=== PATIENT | male | born 1945 | race Caucasian/White ===

== ENCOUNTER 2022-11-27 09:00 | Outpatient (CLI) | payer MEDICARE | END 2022-11-27 23:59 | disposition critical access hospital (66) | LOC: EMS 09:00 | DX: R06.03 Acute respiratory distress (principal); F17.210 Nicotine dependence, cigarettes, uncomplicated; F41.9 Anxiety disorder, unspecified | CPT/HCPCS: A0425; A0429 ==

== ENCOUNTER 2022-11-27 09:19 | Emergency (ER) | payer MEDICARE ==
[2022-11-27 09:29] VITALS: BP 167/76
[2022-11-27] MEDS ORDERED: MORPHINE 2 MG/ML CARPUJECT IVP STA (09:41)
[2022-11-27] MEDS ORDERED: IPRATROPIUM/ALBUTEROL 3 ML NEB INH STA (09:41)
[2022-11-27] MEDS ORDERED: SODIUM CHLORIDE 0.9% 1,000 ML IV STA (09:41)
[2022-11-27] MEDS ORDERED: DEXAMETHASONE 10 MG/ML VIAL IVP STA (09:43)
--- NOTE | 2022-11-27 09:43 | ED Physician Documentation ---
PD HPI DYSPNEA - Stated complaint Stated Complaint: SOA - Chief complaint Chief Complaint: Resp - History obtained from History obtained from: Patient, Family (daughter, who gives supplemental info for the patient), EMS (they noted tachycpnea. Sats actually okay 96% RA.) - History of Present Illness Timing - onset: How many weeks ago (2-3 weeks in particular of worse dyspnea and fatigue. Unalbe to get breath this morning with slight activity.) Timing - onset during: Light activity Timing - duration: Weeks Timing - details: Gradual onset, Still present Inciting event(s): No: Immobilization/travel Associated symptoms: Cough, Wheezing. No: Fever, Hemoptysis, Bilateral edema Similar symptoms before: Has not had sx before Recently seen: Not recently seen (he has not been to a medical proiver for about 20 years per daughter.) Review of Systems Constitutional: reports: Myalgias, Fatigue. denies: Fever, Chills Throat: reports: Sore throat, Other (throat pain with difficultly swallowing unless finely chopped for many months.). denies: Dental pain / toothache (he has had extractions of most teeth. Few left for anchoring for dentures.) Cardiac: denies: Chest pain / pressure, Palpitations, Pedal edema, Calf pain Respiratory: reports: Dyspnea, Cough, Wheezing GI: denies: Vomiting (daughter says he will spit back up foods unless they are soft mechanical or chopped up very small.), Constipation, Diarrhea Skin: denies: Rash, Lesions Musculoskeletal: denies: Neck pain, Back pain Endocrine: reports: Weight loss (significant in past 6 months or more.) PD PAST MEDICAL HISTORY - Past Medical History Cardiovascular: None Respiratory: Other (unknown - he suspects COPD. Has not seen provider for perhaps 20 years. ) Neuro: None Endocrine/Autoimmune: None - Present Medications Home Medications: Ambulatory Orders Medication Instructions Recorded Confirmed Ipratropium/Albuterol [Duoneb] 3 ml INH Q6H #240 ml 11/27/22 Nebulizer 1 each MC QID #1 ea 11/27/22 cefUROXime axetiL [Ceftin] 250 mg PO BID #14 tablet 11/27/22 dexAMETHasone [Decadron] 4 mg PO DAILY #10 tablet 11/27/22 - Allergies Allergies/Adverse Reactions: Allergies Allergy/AdvReac Type Severity Reaction Status Date / Time No Known Drug Allergies Allergy Verified 11/27/22 09:28 - Living Situation Living Situation: reports: With spouse/s.o., With family Living Arrangement: reports: At home - Social History Does the pt smoke?: Yes Does the pt drink ETOH?: No Does the pt have substance abuse?: No PD ED PE NORMAL - Vitals Vital signs reviewed: Yes (very tachypneic, but alert and able to talk partial sentences. ) - General General: Alert and oriented X 3. No: Well developed/nourished (frail with low muscle mass. ) - HEENT HEENT: No: Moist mucous membranes, Pharynx benign (no abnormal in direct posterior pharynx. The left side sublingual appears full and lifted. ) - Neck Neck: Supple, no meningeal sign, No adenopathy, Other (no mass/fullness felt anterior neck. ) - Cardiac Cardiac: No: RRR (irregular but rate controlled. No noted murmur (but baseline wheezing obscures sounds some).) - Respiratory Respiratory: No: Clear bilaterally (diffuse wheezing and some coarse sounds right base. ) - Abdomen Abdomen: Normal bowel sounds, Soft, Non tender - Derm Derm: Normal color, Warm and dry - Extremities Extremities: Normal ROM s pain, No edema, No calf tenderness / cord - Neuro Neuro: Alert and oriented X 3, No motor deficit, Normal speech Eye Opening: Spontaneous Motor: Obeys Commands Verbal: Oriented GCS Score: 15 Results - Vitals Vitals: Vital Signs - 24 hr 11/27/22 11/27/22 11/27/22 09:24 10:08 12:45 Temperature 36.4 C L Heart Rate 100 80 82 Respiratory 28 H 25 H 22 Rate Blood Pressure 167/76 H O2 Saturation 100 100 If not protocol 2 : Oxygen Flow, liters/minute Oxygen O2 Source Nasal cannula Oxygen Flow Rate 3 - EKG (time done) 09:40 EKG releavant findings:: EKG personally interpreted by author of this note. Relevant findings are: Rate: Rate (enter#) (90) Rhythm: Atrial fibrillation, Other (movement and tremor artifact, but appears irregular. ) QRS: Normal Ischemia: Normal ST segments. No: ST elevation c/w ischemia, ST depression - Labs Labs: Laboratory Tests 11/27/22 11/27/22 11/27/22 09:50 09:56 09:56 WBC 7.1 RBC 3.93 L Hgb 12.0 L Hct 36.8 L MCV 93.6 MCH 30.5 MCHC 32.6 RDW 12.5 Plt Count 321 MPV 10.3 Neut # (Auto) 5.2 Lymph # (Auto) 1.1 L [place] # (Auto) 0.6 Eos # (Auto) 0.3 Baso # (Auto) 0.0 Absolute Nucleated RBC 0.00 Nucleated RBC % 0.0 Sodium 138 Potassium 4.4 Chloride 100 L Carbon Dioxide 29 Anion Gap 9.0 BUN 11 Creatinine 0.7 Estimated GFR (MDRD) 110 Glucose 111 H Calcium 9.1 Magnesium 1.9 Total Bilirubin 0.5 AST 21 ALT 12 Alkaline Phosphatase 59 Troponin I High Sens B-Natriuretic Peptide Total Protein 7.6 Albumin 3.5 Globulin 4.1 Albumin/Globulin Ratio 0.9 L Lipase 30 TSH Nasal Adenovirus (PCR) NOT DETECTED Nasal B. parapertussis DNA (PCR) NOT DETECTED Nasal Coronavir 229E PCR NOT DETECTED Nasal Coronavir HKU1 PCR NOT DETECTED Nasal Coronavir NL63 PCR NOT DETECTED Nasal Coronavir OC43 PCR NOT DETECTED Nasal Enterovir/Rhinovir PCR NOT DETECTED Nasal Influenza B PCR NOT DETECTED Nasal Influenza A PCR NOT DETECTED Nasal Parainfluen 1 PCR NOT DETECTED Nasal Parainfluen 2 PCR NOT DETECTED Nasal Parainfluen 3 PCR NOT DETECTED Nasal Parainfluen 4 PCR NOT DETECTED Nasal RSV (PCR) NOT DETECTED Nasal B.pertussis DNA PCR NOT DETECTED Nasal C.pneumoniae (PCR) NOT DETECTED Robert Human Metapneumo PCR NOT DETECTED Nasal M.pneumoniae (PCR) NOT DETECTED Nasal SARS-CoV-2 (PCR) NOT DETECTED 11/27/22 11/27/22 11/27/22 09:56 09:56 09:56 WBC RBC Hgb Hct MCV MCH MCHC RDW Plt Count MPV Neut # (Auto) Lymph # (Auto) [place] # (Auto) Eos # (Auto) Baso # (Auto) Absolute Nucleated RBC Nucleated RBC % Sodium Potassium Chloride Carbon Dioxide Anion Gap BUN Creatinine Estimated GFR (MDRD) Glucose Calcium Magnesium Total Bilirubin AST ALT Alkaline Phosphatase Troponin I High Sens 7.3 B-Natriuretic Peptide 52 Total Protein Albumin Globulin Albumin/Globulin Ratio Lipase TSH 1.83 Nasal Adenovirus (PCR) Nasal B. parapertussis DNA (PCR) Nasal Coronavir 229E PCR Nasal Coronavir HKU1 PCR Nasal Coronavir NL63 PCR Nasal Coronavir OC43 PCR Nasal Enterovir/Rhinovir PCR Nasal Influenza B PCR Nasal Influenza A PCR Nasal Parainfluen 1 PCR Nasal Parainfluen 2 PCR Nasal Parainfluen 3 PCR Nasal Parainfluen 4 PCR Nasal RSV (PCR) Nasal B.pertussis DNA PCR Nasal C.pneumoniae (PCR) Robert Human Metapneumo PCR Nasal M.pneumoniae (PCR) Nasal SARS-CoV-2 (PCR) - Rads (name of study) chest xray Relevant Findings:: Prelim report reviewed, EMP independent interpretation of test (right lower atelectasis and infiltrate, small effusion. Likely will get CT to elaborate. ), See rad report CT neck/chest/abd/pelvis Relevant Findings:: Prelim report reviewed, Discussed with rads (large throat mass c/w cancer. Right lower lung infiltrate c/w aspiration per Radiologist. Abd clear. ), EMP independent interpretation of test PD Medical Decision Making - ED course Complexity details: reviewed results, considered differential (Longstanding smoker since age 18 with minimal healthcare contact has had weight loss over the last couple of years and more recently cough and dyspnea progressive for 2 to 3 weeks. No home medications.), d/w patient Reviewed Lab Results: His chest x-ray shows atelectasis and likely infiltrate with a small effusion in the right lower lobe. Otherwise hyperinflation could be consistent with COPD. He has low body muscle mass. EKG shows some baseline artifact but irregularity likely consistent with atrial fibrillation. We can repeat EKG as he is more rested. Some of that was tachypnea. He is given a DuoNeb to try to help on his wheezing and dyspnea. His oxygenation is actually adequate even on room air and 98 to 100% on just 2 L nasal cannula which she had on coming in by EMS. White count at this point is normal. We are still pending electrolytes BNP and troponin. Once we get kidney function back to, we will decide on CT with or without contrast. Social Determinants of Health: Long-term smoker since age 18. Has been up to 2 packs/day for many years. Currently around 1 pack/day. His daughter recently moved to the [place] to be in the house and care for the patient. ED course: the patient's breathing improved quite well with nebulized Combivent. Also given steroids that will help any swellng of bronchioles and also perhaps some around the tumor/edema. I told the patient and [address] findings and need for follow up and presume biopsy to get clearer perspective on likely treatment and benefits. His breathing is much improved and he is saturating at 100% on RA now. Unlabored breathing. I do not have criteria for hospitlization. No need for transfer/admission if seen in near term followup. Departure - Departure Disposition: 01 Home, Self Care Clinical Impression: COPD exacerbation, Mass of mouth or throat Pneumonia Qualifiers: Pneumonia type: due to unspecified organism Laterality: right Lung location: lower lobe of lung Qualified Code(s): J18.9 - Pneumonia, unspecified organism Condition: Stable Record reviewed to determine appropriate education?: Yes Instructions: ED COPD Flare, ED Pneumonia Adult Follow-Up: [facility] [Provider Group] [facility] [Provider Group] [facility] [Provider Group] Prescriptions: cefUROXime axetiL [Ceftin] 250 mg PO BID #14 tablet dexAMETHasone [Decadron] 4 mg PO DAILY #10 tablet Ipratropium/Albuterol [Duoneb] 3 ml INH Q6H #240 ml Nebulizer 1 each MC QID #1 ea Comments: Continue with the soft mechanical diet as you have been doing to make it easier for swallowing foods and fluids. Try to have the foods slightly thickened as it may be easier to swallow. It does sound like you have some underlying COPD previously undiagnosed that is flared up and also you have a pneumonia on the lower right. We can treat this with nebulizers 4 times daily for the next 7 to 10 days. Also add Decadron steroid daily for the next week or so. For the pneumonia, I would also add Ceftin antibiotic twice daily for the next week. You do have a large mass on your CT scan in the throat and neck area. This is what is affecting your swallowing. You will need to have this evaluated and presumably biopsied for a better diagnosis. I gave you the number [facility] and [facility]. Call tomorrow for soon follow-up appointment. They usually pretty good to get a new in fairly promptly. I sent your prescriptions to [facility]. Return to the ER if not improving well over the next few days. Discharge Date/Time: 11/27/22 13:02
[2022-11-27 09:59] LABS: BASOPHILS % (AUTO) 0.4 %; EOSINOPHILS # (AUTO) 0.3 10^3/uL (0.0-0.7); EOSINOPHILS % (AUTO) 3.9 %; HCT - HEMATOCRIT 36.8 % (42.0-52.0); LYMPHOCYTES # (AUTO) 1.1 10^3/uL (1.5-3.5); MEAN CORPUSCULAR HEMOGLOBIN 30.5 pg (27.0-31.0); MEAN CORPUSCULAR HGB CONC 32.6 g/dL (32.0-36.0); MEAN CORPUSCULAR VOLUME 93.6 fL (80.0-94.0); MEAN PLATELET VOLUME 10.3 fL (7.4-11.4); MONOCYTES # (AUTO) 0.6 10^3/uL (0.0-1.0); MONOCYTES % (AUTO) 7.8 %; NEUTROPHILS # (AUTO) 5.2 10^3/uL (1.5-6.6); NEUTROPHILS % (AUTO) 72.6 %; PLT - PLATELET COUNT 321 10^3/uL (130-450); RED BLOOD COUNT 3.93 10^6/uL (4.70-6.10); RED CELL DISTRIBUTION WIDTH 12.5 % (12.0-15.0); WHITE BLOOD COUNT 7.1 x10^3/uL (4.8-10.8)
--- NOTE | 2022-11-27 10:03 | XRAY Report ---
PROCEDURE: Chest 1 View X-Ray INDICATIONS: Chest Pain TECHNIQUE: One view of the chest was acquired. COMPARISON: None. FINDINGS: Surgical changes and devices: None. Lungs and pleura: Small right-sided pleural effusion with adjacent opacity. No pneumothorax. Mediastinum: Mediastinal contours appear normal. Heart size is normal. Lesser calcifications with in the aorta. Bones and chest wall: No suspicious bony lesions. Overlying soft tissues appear unremarkable. IMPRESSION: Small right-sided pleural effusion. Adjacent opacity may represent pneumonia versus atelectasis. Cons ider CT for further evaluation given unilateral effusion. Reviewed by: Janes Mancini DO on 11/27/2022 9:01 AM JULIAN Approved by: Janes Mancini DO on 11/27/2022 9:01 AM JULIAN Station ID: [id number]
[2022-11-27 10:12] LABS: ALBUMIN 3.5 g/dL (3.2-5.5); ALBUMIN/GLOBULIN RATIO 0.9 (1.0-2.2); BILIRUBIN,TOTAL 0.5 mg/dL (0.2-1.0); CALCIUM 9.1 mg/dL (8.5-10.3); CREATININE 0.7 mg/dL (0.6-1.2); MAGNESIUM 1.9 mg/dL (1.7-2.8); POTASSIUM 4.4 mmol/L (3.5-5.0); TOTAL PROTEIN 7.6 g/dL (6.7-8.2)
[2022-11-27] MEDS ORDERED: iohexoL-300 100 ML VIAL ONE (10:32)
[2022-11-27] MEDS ORDERED: iohexoL-300 100 ML VIAL IVP ONE (11:02)
[2022-11-27 11:09] LABS: CORONAVIRUS 229E-RESP PCR NOT DETECTED; CORONAVIRUS HKU1-RESP PCR NOT DETECTED; CORONAVIRUS NL63-RESP PCR NOT DETECTED; CORONAVIRUS OC43-RESP PCR NOT DETECTED; HUMAN METAPNEUMOVIRUS NOT DETECTED; INFLUENZA A- RESP PCR PANEL NOT DETECTED; RHINOVIRUS/ENTEROVIRUS NOT DETECTED; SARS-CoV-2 -RESP PCR PANEL NOT DETECTED
[2022-11-27 11:10] LABS: B. PARAPERTUSSIS- RESP PCR PAN NOT DETECTED; B. PERTUSSIS- RESP PCR PANEL NOT DETECTED; C. PNEUMONIAE- RESP PCR PANEL NOT DETECTED; INFLUENZA B - RESP PCR PANEL NOT DETECTED; M. PNEUMONIAE- RESP PCR PANEL NOT DETECTED; PARAINFLUENZA VIRUS 1 NOT DETECTED; PARAINFLUENZA VIRUS 2 NOT DETECTED; PARAINFLUENZA VIRUS 3 NOT DETECTED; PARAINFLUENZA VIRUS 4 NOT DETECTED; RSV- RESP PCR PANEL NOT DETECTED
--- NOTE | 2022-11-27 11:34 | CT Report ---
PROCEDURE: ABDOMEN/PELVIS W INDICATIONS: weight loss/ abd pain CONTRAST: 100ml omni 300 TECHNIQUE: After the administration of nonionic iodinated contrast, 5 mm thick sections acquired from the diaphr agms to the symphysis. 5 mm thick coronal and sagittal reformats were acquired. For radiation dose reduction, the following was used: automated exposure control, adjustment of mA and/or kV according to patient size. COMPARISON: Same-day CT chest FINDINGS: Image quality: Limited by motion artifact. Lung bases and heart: Please see same day CT chest for findings. Liver: Subcentimeter hypodensity within the right hepatic lobe too small to further characterize but statistically represents a simple cyst. Gallbladder and biliary tree: Unremarkable Spleen: Unremarkable. Pancreas: Unremarkable. Adrenals: Unremarkable. Kidneys and ureters: Unremarkable. Bowel and peritoneum: No bowel distension. No pathologic free fluid. No wall thickening, ascites, or pneumoperitoneum Lymph nodes: No central or retroperitoneal adenopathy. Vessels: There is diffuse atherosclerosis noted throughout the abdominal and pelvic vasculature with multiple regions of stenosis noted throughout. There is high-grade stenosis of the proximal superior mesenteric and celiac origins as well as the origins of the right renal artery. Advanced disease exte nding into the pelvis with regions of moderate high-grade stenosis throughout the iliac vessels. 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 PELVIS Reproductive organs: Unremarkable. Bladder: Unremarkable. Lymph nodes: Unremarkable. Bones: No aggressive osseous abnormality. Other: None. IMPRESSION: No acute intra-abdominal/pelvic abnormality. 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 Findings discussed with ER provider Dr. Marcelino Escoto by Dr. Janes Mancini over the telephone at approxim ately 1030 hours [place] standard time on 11/27/2022. Reviewed by: Janes Mancini DO on 11/27/2022 10:32 AM JULIAN Approved by: Janes Mancini DO on 11/27/2022 10:32 AM JULIAN Station ID: [id number]
--- NOTE | 2022-11-27 11:42 | CT Report ---
PROCEDURE: SOFT TISSUE NECK W INDICATIONS: painful swallowing and weight loss months CONTRAST: 100ml omni 300 TECHNIQUE: After the administration of intravenous contrast, 3.0 mm axial sections acquired from the sella to th e aortic arch. Additional oblique axial 3.0 mm sections acquired through the pharynx. 3 mm thick co catalina reformats were generated. For radiation dose reduction, the following was used: automated exp osure control, adjustment of mA and/or kV according to patient size. COMPARISON: None. FINDINGS: Image quality: Excellent. Lymph nodes: There are enlarged and necrotic appearing lymph nodes noted bilaterally. There are enlar ged jugulodigastric lymph nodes. The right jugulodigastric lymph node demonstrates hypoattenuation wong ggestive necrotic appearance. These measure up to 1.8 cm in short axis diameter. In addition there is a level 3 lymph node with hypoattenuation concerning for necrosis measuring 9 mm in short axis diame ter (series 2 image 95) Vessels: Atherosclerotic calcifications are noted throughout the cervical and proximal intracranial c arotid areas there is greater than 50% stenosis of the common and proximal internal carotid arteries adjacent to the bifurcations bilaterally. No occlusion within the limits of this exam. Neck spaces: There is a large enhancing mass at the base of the tongue extending inferiorly to the le shruthi of the hyoid bone likely involving portions of the epiglottis. The overall size measures 4.9 x 3. 7 x 4.7 cm. This causes mass effect on the adjacent oropharynx and hypopharynx. Glands: The parotid and submandibular glands appear normal. The thyroid is normal in size and there are no incidental findings. Miscellaneous: Visualized brain and orbits appear normal. Lung apices appear clear. Superficial so ft tissues appear normal. Bones: Advanced degenerative changes of the cervical spine. No evidence of an acute osseous abnormali ty or aggressive appearing osseous lesion. There is mild mucosal disease of the ethmoid air cells and maxillary sinuses. 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 This causes mass effect on the adjacent pipe and hypopharynx. In addition there is bilateral enlarged cervical chain lymph nodes along with hypoattenuation concerning for necrosis and metastatic spread. Recommend ENT and oncologic referral. Findings discussed with ER provider Dr. Marcelino Escoto by Dr. Janes Mancini over the telephone at approxim ately 1030 hours [place] standard time on 11/27/2022. Reviewed by: Janes Mancini DO on 11/27/2022 10:41 AM JULIAN Approved by: Janes Mancini DO on 11/27/2022 10:41 AM JULIAN Station ID: [id number]
--- NOTE | 2022-11-27 11:50 | CT Report ---
PROCEDURE: CHEST W INDICATIONS: dyspnea/ infiltrate on CXR/ smoker CONTRAST: 100ml omni 300 TECHNIQUE: After the administration of intravenous contrast, 1 mm axial images were acquired from the pulmonary apices through the posterior costophrenic angles. Axial 5 mm soft tissue kernel reconstructions were performed as well as 8 mm axial MIP and coronal and sagittal 5 mm reformations. For radiation dose reduction, the following was used: automated exposure control, adjustment of mA and/or kV according to patient size. COMPARISON: Same day CT abdomen and pelvis. An chest radiograph FINDINGS: Image quality: Motion artifact somewhat limits evaluation.. Lungs and pleura: There is debris noted within the trachea extending into the right proximal bronchi as well as distal bronchi within the middle and lower lobes. There is a small right-sided pleural eff usion. There is adjacent atelectasis. Scattered pleural calcifications. Small calcified granuloma of the right lower lobe. 6 mm pulmonary nodule within the left upper lobe (series 3 image 168). An addit ional subpleural pulmonary nodule within the lateral aspect of the left upper lobe measuring 5 mm (se conrad 3 image 176) (. There is a 4 mm subpleural pulmonary nodule (series 3 image 224) focal region of pleural thickening within the posterior aspect of the superior left lower lobe (series 3 images 137- 160). Mediastinum: Heart size is normal. Advanced multivessel coronary vascular calcifications. No pericard ial effusions. No mediastinal adenopathy by size criteria. No large vessel abnormality. Aorta is norm al in caliber. Circular calcification within the aorta and proximal branch vessels. Chest wall and lower neck: Thyroid is unremarkable. No axillary or supraclavicular adenopathy by size . Bones: No aggressive osseous abnormality. Upper Abdomen: Please see same-day CT abdomen and pelvis for findings. IMPRESSION: Small right-sided pleural effusion with adjacent atelectasis. There is debris with mucous plugging no mary throughout the right middle lobe and right lower lobe. Recommend clinical correlation for aspirat ion. No focal opacity. Left upper and lower lobe pulmonary nodules measuring up to 6 mm. Recommend follow-up per oncology re commendations. Findings discussed with ER provider Dr. Marcelino sEcoto by Dr. Janes Mancini over the telephone at [facility] ately 1030 hours [place] standard time on 11/27/2022. Reviewed by: Janes Mancini DO on 11/27/2022 10:49 AM AKDT Approved by: Janes Mancini DO on 11/27/2022 10:49 AM JULIAN Station ID: [id number]
[2022-11-27] MEDS ORDERED: cefTRIAXone 1 GM VIAL IVP STA (12:25)
== END 2022-11-27 13:02 | disposition home or self-care (01) ==
LOC: ED 09:19
DX: J44.1 Chronic obstructive pulmonary disease with (acute) exacerbation (principal); J18.9 Pneumonia, unspecified organism; R93.89 Abnormal findings on diagnostic imaging of other specified body structures; F17.200 Nicotine dependence, unspecified, uncomplicated; Z20.822 Contact with and (suspected) exposure to COVID-19
CPT/HCPCS: 36415; 70491; 71045; 71260; 74177; 80053; 83690; 83735; 83880; 84443; 84484; 85025; 87633; 93005; 94640; 96374; 96375; 99284; Q9967